=== PATIENT | male | born 1965 | race Caucasian/White ===

== ENCOUNTER 2018-12-12 11:38 | Emergency (ER) | payer OTHER ==
[2018-12-12] MEDS: LIDOCAINE 2%/EPI MPF (SDV) 20 ML VIAL INJ (12:10)
[2018-12-12 12:29] LABS: ADD MAN DIFF? NO
[2018-12-12] MEDS: DIPHTH/TET/ACEL PERTUSS (ADULT) 0.5 ML VIAL IM* (12:32)
[2018-12-12 12:35] LABS: WHITE BLOOD COUNT 6.2 10^3/ul (4.8-10.8)
[2018-12-12 12:35] LABS: BASOPHIL # 0.1 10^3/ul (0.0-0.1); BASOPHILS % 1.8 % (0.0-2.0); EOSINOPHILS # 0.3 10^3/ul (0.0-0.5); HEMATOCRIT 29.4 % (42.0-52.0); HEMOGLOBIN 8.6 g/dl (14.0-18.0); LYMPHOCYTES # 1.6 10^3/ul (0.8-2.9); LYMPHOCYTES % 26.1 % (15.0-51.0); MEAN CORPUSCULAR HGB CONC 29.3 g/dl (32.0-37.0); MEAN CORPUSCULAR VOLUME 78.6 fl (82.0-101.0); MEAN PLATELET VOLUME 9.6 fl (7.4-10.4); MONOCYTE # 0.9 10^3/ul (0.3-0.9); MONOCYTES % 13.9 % (0.0-11.0); NEUTROPHIL # 3.2 10^3/ul (1.6-7.5); NEUTROPHILS % 52.6 % (39.0-77.0); PLATELET COUNT 147 10^3/UL (140-415); RED BLOOD COUNT 3.74 10^6/ul (4.70-6.10); RED CELL DISTRIBUTION WIDTH 18.6 % (11.5-14.5)
[2018-12-12 12:57] LABS: ALANINE AMINOTRANSFERASE 29 IU/L (13-69); ALBUMIN 3.1 g/dl (3.3-4.9); ALBUMIN/GLOBULIN RATIO 0.67; ALKALINE PHOSPHATASE 230 IU/L (42-121); ANION GAP 10 (5-13); ASPARTATE AMINO TRANSFERASE 86 IU/L (15-46); BILIRUBIN,INDIRECT 0.4 mg/dl (0-1.1); BILIRUBIN,TOTAL 0.4 mg/dl (0.2-1.3); BLOOD UREA NITROGEN 8 mg/dl (7-20); CALCIUM 8.2 mg/dl (8.4-10.2); CARBON DIOXIDE 21 mmol/L (21-31); CHLORIDE 114 mmol/L (97-110); CREATININE 0.57 mg/dl (0.61-1.24); Estimated GFR > 60 mL/min (>60); GLUCOSE 129 mg/dl (70-220); POTASSIUM 3.7 mmol/L (3.5-5.1); SODIUM 145 mmol/L (135-144); TOTAL PROTEIN 7.7 g/dl (6.1-8.1)
[2018-12-12 13:11] LABS: ACETAMINOPHEN < 10.0 ug/ml (10.0-30.0); SALICYLATE < 1.0 mg/dl (5.0-30.0)
[2018-12-12 14:13] LABS: ADD UMIC YES; UR ASCORBIC ACID NEGATIVE (NEGATIVE); UR BILIRUBIN (Dip) NEGATIVE (NEGATIVE); UR BLOOD (Dip) 1+ mg/dL (NEGATIVE); UR CLARITY CLEAR (CLEAR); UR COLOR YELLOW (YELLOW); UR GLUCOSE (Dip) NEGATIVE (NEGATIVE); UR KETONES (Dip) NEGATIVE (NEGATIVE); UR LEUKOCYTE ESTERASE (Dip) NEGATIVE Leu/ul (NEGATIVE); UR NITRITE (Dip) NEGATIVE (NEGATIVE); UR RBC 0 /HPF (0-5); UR SPECIFIC GRAVITY (Dip) 1.006 (1.003-1.030); UR TOTAL PROTEIN (Dip) NEGATIVE (NEGATIVE); UR UROBILINOGEN (Dip) NEGATIVE (NEGATIVE); UR WBC 0 /HPF (0-5)
[2018-12-12 15:09] LABS: BARBITURATES Negative (NEGATIVE); BENZODIAZEPINES Negative (NEGATIVE); CANNABINOIDS Negative (NEGATIVE); COCAINE Negative (NEGATIVE); OPIATES Negative (NEGATIVE)
[2018-12-12 15:28] LABS: AMPHETAMINE/METHAMPHETAMINE Positive (NEGATIVE)
== END 2018-12-12 14:21 | disposition home or self-care (01) ==
LOC: E/R 11:38
DX: S01.411A Laceration without foreign body of right cheek and temporomandibular area, initial encounter (principal); F10.920 Alcohol use, unspecified with intoxication, uncomplicated; S02.2XXA Fracture of nasal bones, initial encounter for closed fracture; W01.0XXA Fall on same level from slipping, tripping and stumbling without subsequent striking against object, initial encounter; Y92.9 Unspecified place or not applicable; Z23 Encounter for immunization
CPT/HCPCS: 12011; 70450; 70486; 73562; 80053; 80307; 81001; 85025; 90471; 90715; 99285-25

== ENCOUNTER 2019-03-25 09:48 | Inpatient (IN) | payer OTHER ==
[2019-03-25] MEDS: SODIUM CHLORIDE 0.9% 1L BAG IV* (10:23)
[2019-03-25 10:26] LABS: ABNORMAL IP MESSAGE 1; HEMATOCRIT 24.8 % (42.0-52.0); HEMOGLOBIN 7.1 g/dl (14.0-18.0); MEAN CORPUSCULAR HEMOGLOBIN 22.5 pg (29.0-33.0); MEAN CORPUSCULAR HGB CONC 28.6 g/dl (32.0-37.0); MEAN CORPUSCULAR VOLUME 78.5 fl (82.0-101.0); MEAN PLATELET VOLUME 10.1 fl (7.4-10.4); NUCLEATED RED BLOOD CELLS% 0.2 /100WBC (0.0-0.0); PLATELET COUNT 67 10^3/UL (140-415); POSITIVE DIFF @See below; RED BLOOD COUNT 3.16 10^6/ul (4.70-6.10); RED CELL DISTRIBUTION WIDTH 23.5 % (11.5-14.5)
[2019-03-25 10:26] LABS: WHITE BLOOD COUNT 8.9 10^3/ul (4.8-10.8)
[2019-03-25] MEDS: CEFEPIME 2GM/50 ML (PMX) 50 ML IVPB (10:26)
[2019-03-25 10:28] LABS: ADD MAN DIFF? YES
[2019-03-25] MEDS: ACETAMINOPHEN 325 MG TAB PO (10:28)
[2019-03-25 10:42] LABS: ALANINE AMINOTRANSFERASE 30 IU/L (13-69); ALBUMIN 2.3 g/dl (3.3-4.9); ALBUMIN/GLOBULIN RATIO 0.51; ALKALINE PHOSPHATASE 164 IU/L (42-121); ANION GAP 12 (5-13); ASPARTATE AMINO TRANSFERASE 117 IU/L (15-46); BILIRUBIN,INDIRECT 2.8 mg/dl (0-1.1); BILIRUBIN,TOTAL 6.5 mg/dl (0.2-1.3); BLOOD UREA NITROGEN 11 mg/dl (7-20); CARBON DIOXIDE 21 mmol/L (21-31); CHLORIDE 99 mmol/L (97-110); CREATININE 0.57 mg/dl (0.61-1.24); Estimated GFR > 60 mL/min (>60); GLUCOSE 133 mg/dl (70-220); POTASSIUM 3.3 mmol/L (3.5-5.1); SODIUM 132 mmol/L (135-144); TOTAL PROTEIN 6.8 g/dl (6.1-8.1)
[2019-03-25 10:43] LABS: INR 1.78; PROTIME 20.8 Sec (11.9-14.9); PT RATIO 1.6
[2019-03-25 10:44] LABS: PARTIAL THROMBOPLASTIN TIME 38.9 Sec (23.0-35.0)
[2019-03-25 10:53] LABS: TROPONIN-I < 0.012 ng/ml (0.000-0.120)
[2019-03-25 10:55] LABS: ANISOCYTOSIS 2+ (0-0); ERYTHROBLAST% (NRBC) (M) 3 % (0-0); LYMPHOCYTES #M 0.4 10^3/ul (0.8-2.9); LYMPHOCYTES % (M) 5 % (15-51); MONOCYTE #M 0.8 10^3/ul (0.3-0.9); MONOCYTES % (M) 9 % (0-11); PLATELET ESTIMATE DECREASED; POIKILOCYTOSIS 1+ (0-0); POLYCHROMASIA 3+ (0-0); SEGMENTED NEUTROPHILS (M) % 86 % (39-77); SMUDGE%M 6 % (0-0); TARGET CELLS 1+ (0-0)
[2019-03-25] MEDS ORDERED: ONDANSETRON 4 MG INJ IV ×2 (13:00→16:30)
[2019-03-25] MEDS ORDERED: ACETAMINOPHEN 325 MG TAB PO ×2 (13:00→16:30)
[2019-03-25 14:15] LABS: LACTIC ACID 2.6 mmol/L (0.5-2.0)
[2019-03-25] MEDS ORDERED: NACL 0.9% 3 ML SYG IV (16:30)
[2019-03-25] MEDS ORDERED: morphine 2 MG INJ IV (16:30)
[2019-03-25] MEDS ORDERED: HYDROCODONE/APAP (5/325) TAB PO (16:30)
[2019-03-25] MEDS: POTASSIUM CHLORIDE (SR) 20 MEQ TAB PO (16:47)
[2019-03-25 17:20] LABS: CARCINOEMBRYONIC ANTIGEN 5.6 ng/ml (0.0-5.0)
[2019-03-25 17:24] LABS: CANCER ANTIGEN 19-9 30.5 U/ml (0.0-37.0)
[2019-03-25 17:25] LABS: ALPHA FETOPROTEIN 5.73 IU/L (0.00-7.21)
[2019-03-26 05:30] LABS: ADD MAN DIFF? NO
[2019-03-26 05:39] LABS: WHITE BLOOD COUNT 6.5 10^3/ul (4.8-10.8)
[2019-03-26 05:39] LABS: ABNORMAL IP MESSAGE 1; BASOPHIL # 0.1 10^3/ul (0.0-0.1); BASOPHILS % 0.8 % (0.0-2.0); EOSINOPHILS # 0.1 10^3/ul (0.0-0.5); EOSINOPHILS % 1.2 % (0.0-7.0); HEMATOCRIT 22.6 % (42.0-52.0); LYMPHOCYTES # 0.5 10^3/ul (0.8-2.9); LYMPHOCYTES % 8.4 % (15.0-51.0); MEAN CORPUSCULAR HEMOGLOBIN 23.2 pg (29.0-33.0); MEAN CORPUSCULAR HGB CONC 29.2 g/dl (32.0-37.0); MEAN CORPUSCULAR VOLUME 79.3 fl (82.0-101.0); MEAN PLATELET VOLUME 10.2 fl (7.4-10.4); MONOCYTE # 1.5 10^3/ul (0.3-0.9); MONOCYTES % 23.1 % (0.0-11.0); NEUTROPHIL # 4.2 10^3/ul (1.6-7.5); NEUTROPHILS % 65.1 % (39.0-77.0); PLATELET COUNT 50 10^3/UL (140-415); POSITIVE DIFF @See below; RED BLOOD COUNT 2.85 10^6/ul (4.70-6.10); RED CELL DISTRIBUTION WIDTH 23.5 % (11.5-14.5)
[2019-03-26 05:52] LABS: HEMOGLOBIN 6.6 g/dl (14.0-18.0)
[2019-03-26 06:05] LABS: IRON 13 ug/dl (35-150)
[2019-03-26 06:08] LABS: ALANINE AMINOTRANSFERASE 32 IU/L (13-69); ALBUMIN/GLOBULIN RATIO 0.51; ALKALINE PHOSPHATASE 140 IU/L (42-121); ANION GAP 7 (5-13); ASPARTATE AMINO TRANSFERASE 100 IU/L (15-46); BILIRUBIN,INDIRECT 2.7 mg/dl (0-1.1); BILIRUBIN,TOTAL 5.7 mg/dl (0.2-1.3); BLOOD UREA NITROGEN 8 mg/dl (7-20); CALCIUM 7.1 mg/dl (8.4-10.2); CARBON DIOXIDE 22 mmol/L (21-31); CHLORIDE 107 mmol/L (97-110); CREATININE 0.51 mg/dl (0.61-1.24); Estimated GFR > 60 mL/min (>60); GLUCOSE 85 mg/dl (70-220); MAGNESIUM 1.7 mg/dl (1.7-2.5); PHOSPHORUS 1.6 mg/dl (2.5-4.9); POTASSIUM 3.5 mmol/L (3.5-5.1); SODIUM 136 mmol/L (135-144); TOTAL PROTEIN 5.9 g/dl (6.1-8.1)
[2019-03-26 06:14] LABS: % IRON SATURATION 7 % SAT (22-52); TOTAL IRON BINDING CAPACITY 176 ug/dl (241-421)
[2019-03-26 09:38] LABS: ANISOCYTOSIS 1+ (0-0); BAND NEUTROPHILS #M 0.3 10^3/ul (0.0-0.6); BAND NEUTROPHILS % (M) 5 % (0-4); EOSINOPHILS % (M) 3 % (0-7); GIANT THROMBO% (M) 3 % (0-0); HYPOCHROMASIA 3+ (0-0); LYMPHOCYTES #M 0.1 10^3/ul (0.8-2.9); LYMPHOCYTES % (M) 3 % (15-51); METAMYELOCYTES %M 1 % (0-0); MONOCYTE #M 1.3 10^3/ul (0.3-0.9); MONOCYTES % (M) 20 % (0-11); PLATELET ESTIMATE DECREASED; POLYCHROMASIA 1+ (0-0); RBC MORPHOLOGY COMMENT @See below; SEG NEUT #M 4.4 10^3/ul (1.6-7.5); SEGMENTED NEUTROPHILS (M) % 68 % (39-77); SMUDGE%M 19 % (0-0); TARGET CELLS 1+ (0-0); WBC MORPHOLOGY COMMENT @See below
[2019-03-26 11:52] LABS: IMMEDIATE SPIN CROSSMATCH 1 1
[2019-03-26 15:55] LABS: FLD MN% 52.7 %; FLD PMN% 47.3 %; FLD RBC 0 /uL; FLD WBC 305 /cmm
[2019-03-26] MEDS: POTASSIUM PHOSPHATE 20 MEQ in SOD CHLORIDE 0.9% 250 ML IVPB (16:23)
[2019-03-26 16:31] LABS: FLUID TOTAL PROTEIN < 2.0 g/dl
[2019-03-26 16:48] LABS: FLD TYPE ASCITES
[2019-03-26 16:48] LABS: FLD CLARITY HAZY; FLD COLOR YELLOW
[2019-03-26 18:02] LABS: ADD MAN DIFF? NO
[2019-03-26 18:10] LABS: ABNORMAL IP MESSAGE 1; BASOPHIL # 0.1 10^3/ul (0.0-0.1); BASOPHILS % 0.9 % (0.0-2.0); EOSINOPHILS # 0.1 10^3/ul (0.0-0.5); EOSINOPHILS % 0.9 % (0.0-7.0); HEMOGLOBIN 7.5 g/dl (14.0-18.0); LYMPHOCYTES # 0.6 10^3/ul (0.8-2.9); LYMPHOCYTES % 8.1 % (15.0-51.0); MEAN CORPUSCULAR HEMOGLOBIN 24.2 pg (29.0-33.0); MEAN CORPUSCULAR VOLUME 80.6 fl (82.0-101.0); MEAN PLATELET VOLUME 9.6 fl (7.4-10.4); MONOCYTE # 1.4 10^3/ul (0.3-0.9); MONOCYTES % 20.9 % (0.0-11.0); NEUTROPHIL # 4.6 10^3/ul (1.6-7.5); NEUTROPHILS % 67.6 % (39.0-77.0); NUCLEATED RED BLOOD CELLS% 0.3 /100WBC (0.0-0.0); PLATELET COUNT 53 10^3/UL (140-415); POSITIVE DIFF @See below; RED CELL DISTRIBUTION WIDTH 22.6 % (11.5-14.5)
[2019-03-26 18:10] LABS: WHITE BLOOD COUNT 6.8 10^3/ul (4.8-10.8)
[2019-03-26 18:25] LABS: AMMONIA < 9 umol/l (9-30)
[2019-03-26 18:27] LABS: ANION GAP 6 (5-13); BLOOD UREA NITROGEN 10 mg/dl (7-20); CARBON DIOXIDE 21 mmol/L (21-31); CHLORIDE 106 mmol/L (97-110); CREATININE 0.47 mg/dl (0.61-1.24); Estimated GFR > 60 mL/min (>60); GLUCOSE 80 mg/dl (70-220); POTASSIUM 3.8 mmol/L (3.5-5.1); SODIUM 133 mmol/L (135-144)
[2019-03-26] MEDS: SOD FERRIC GLUC COMPLX 125 MG in SOD CHLORIDE 0.9% 100 ML IVPB (20:30)
== END 2019-03-26 22:27 | disposition home or self-care (01) | DRG 433 ==
LOC: E/R 09:48 → PP2 12:43
PROVIDERS: Internal Medicine
PROC: 0W9G3ZZ Drainage of Peritoneal Cavity, Percutaneous Approach (ICD-10-PCS; principal; 2019-03-26)
PROC: 30253N1 (ICD-10-PCS; 2019-03-26)
DX: K70.31 Alcoholic cirrhosis of liver with ascites (principal); D61.818 Other pancytopenia; E87.1 Hypo-osmolality and hyponatremia; E87.2 Acidosis; F10.188 Alcohol abuse with other alcohol-induced disorder; D50.9 Iron deficiency anemia, unspecified; E87.6 Hypokalemia; D63.8 Anemia in other chronic diseases classified elsewhere
CPT/HCPCS: 36415; 36430; 71045; 74176; 74182; 80048; 80053; 82042; 82105; 82140; 82378; 83036; 83540; 83605; 83735; 84100; 84157; 84484; 85025; 85610; 85730; 86301; 86850; 86900; 86901; 86920; 87040-91; 87070; 87102; 87116; 88104; 88305; 89051; 93005; 96374; 99285-25

== ENCOUNTER 2019-03-27 14:16 | Emergency (ER) | payer OTHER ==
[2019-03-27] MEDS: FUROSEMIDE 20 MG TAB PO (15:18)
== END 2019-03-27 15:33 | disposition home or self-care (01) ==
LOC: E/R 14:16
DX: K70.31 Alcoholic cirrhosis of liver with ascites (principal); F10.10 Alcohol abuse, uncomplicated
CPT/HCPCS: 99283; Z7610

== ENCOUNTER 2019-04-02 17:21 | Emergency (ER) | payer OTHER | END 2019-04-02 19:00 | disposition home or self-care (01) | LOC: E/R 17:21 | DX: R18.8 Other ascites (principal); R10.84 Generalized abdominal pain | CPT/HCPCS: 99283; Z7502 ==

== ENCOUNTER 2019-04-03 08:39 | Emergency (ER) | payer OTHER ==
[2019-04-03] MEDS: LIDOCAINE 1% (MPF) 5 ML VIAL (10:03)
== END 2019-04-03 11:12 | disposition home or self-care (01) ==
LOC: E/R 08:39
DX: K70.31 Alcoholic cirrhosis of liver with ascites (principal)
CPT/HCPCS: 99285-25; Z7502

== ENCOUNTER 2019-04-08 08:44 | Emergency (ER) | payer OTHER ==
[2019-04-08] MEDS: LIDOCAINE 1% (MPF) 5 ML VIAL (10:32)
== END 2019-04-08 11:26 | disposition home or self-care (01) ==
LOC: E/R 08:44
DX: R18.8 Other ascites (principal)
CPT/HCPCS: 99285-25; Z7502

== ENCOUNTER 2019-04-15 08:38 | Emergency (ER) | payer OTHER ==
[2019-04-15] MEDS: LIDOCAINE 1% (MPF) 5 ML VIAL (13:34)
== END 2019-04-15 13:48 | disposition home or self-care (01) ==
LOC: E/R 08:38
DX: K70.31 Alcoholic cirrhosis of liver with ascites (principal)
CPT/HCPCS: 99285-25; Z7502

== ENCOUNTER 2019-04-21 10:37 | Emergency (ER) | payer OTHER ==
[2019-04-21 12:28] LABS: ADD MAN DIFF? NO
[2019-04-21 12:31] LABS: ABNORMAL IP MESSAGE 1; BASOPHIL # 0.1 10^3/ul (0.0-0.1); BASOPHILS % 0.6 % (0.0-2.0); EOSINOPHILS # 0.2 10^3/ul (0.0-0.5); EOSINOPHILS % 1.5 % (0.0-7.0); HEMOGLOBIN 8.3 g/dl (14.0-18.0); LYMPHOCYTES # 1.2 10^3/ul (0.8-2.9); LYMPHOCYTES % 9.7 % (15.0-51.0); MEAN CORPUSCULAR HEMOGLOBIN 27.6 pg (29.0-33.0); MEAN CORPUSCULAR HGB CONC 31.9 g/dl (32.0-37.0); MEAN CORPUSCULAR VOLUME 86.4 fl (82.0-101.0); MEAN PLATELET VOLUME 9.7 fl (7.4-10.4); MONOCYTE # 1.3 10^3/ul (0.3-0.9); MONOCYTES % 10.8 % (0.0-11.0); NEUTROPHIL # 9.5 10^3/ul (1.6-7.5); NEUTROPHILS % 76.9 % (39.0-77.0); PLATELET COUNT 95 10^3/UL (140-415); POSITIVE DIFF @See below; RED BLOOD COUNT 3.01 10^6/ul (4.70-6.10); RED CELL DISTRIBUTION WIDTH 21.7 % (11.5-14.5)
[2019-04-21 12:31] LABS: WHITE BLOOD COUNT 12.3 10^3/ul (4.8-10.8)
[2019-04-21 12:48] LABS: ADD UMIC NO; ALANINE AMINOTRANSFERASE 56 IU/L (13-69); ALBUMIN 2.3 g/dl (3.3-4.9); ALBUMIN/GLOBULIN RATIO 0.45; ALKALINE PHOSPHATASE 275 IU/L (42-121); ANION GAP 8 (5-13); ASPARTATE AMINO TRANSFERASE 112 IU/L (15-46); BILIRUBIN,INDIRECT 1.4 mg/dl (0-1.1); BILIRUBIN,TOTAL 1.4 mg/dl (0.2-1.3); BLOOD UREA NITROGEN 11 mg/dl (7-20); CALCIUM 7.9 mg/dl (8.4-10.2); CARBON DIOXIDE 22 mmol/L (21-31); CHLORIDE 102 mmol/L (97-110); CREATININE 0.71 mg/dl (0.61-1.24); Estimated GFR > 60 mL/min (>60); GLUCOSE 91 mg/dl (70-220); POTASSIUM 3.9 mmol/L (3.5-5.1); SODIUM 132 mmol/L (135-144); TOTAL PROTEIN 7.4 g/dl (6.1-8.1); UR ASCORBIC ACID NEGATIVE (NEGATIVE); UR BILIRUBIN (Dip) NEGATIVE (NEGATIVE); UR BLOOD (Dip) NEGATIVE (NEGATIVE); UR CLARITY CLEAR (CLEAR); UR COLOR YELLOW (YELLOW); UR GLUCOSE (Dip) NEGATIVE (NEGATIVE); UR KETONES (Dip) NEGATIVE (NEGATIVE); UR LEUKOCYTE ESTERASE (Dip) NEGATIVE Leu/ul (NEGATIVE); UR NITRITE (Dip) NEGATIVE (NEGATIVE); UR SPECIFIC GRAVITY (Dip) 1.004 (1.003-1.030); UR TOTAL PROTEIN (Dip) NEGATIVE (NEGATIVE); UR UROBILINOGEN (Dip) NEGATIVE (NEGATIVE)
== END 2019-04-21 17:28 | disposition home or self-care (01) ==
LOC: E/R 10:37
DX: R25.2 Cramp and spasm (principal); R18.8 Other ascites
CPT/HCPCS: 80053; 81003; 85025; 99283

== ENCOUNTER 2019-04-27 08:46 | Emergency (ER) | payer OTHER | END 2019-04-27 09:54 | disposition home or self-care (01) | LOC: E/R 08:46 | DX: K70.31 Alcoholic cirrhosis of liver with ascites (principal) | CPT/HCPCS: 76705; 99284-25 ==

== ENCOUNTER 2019-05-04 08:51 | Emergency (ER) | payer OTHER ==
[2019-05-04] MEDS: LIDOCAINE 1% (MPF) 5 ML VIAL (10:57)
== END 2019-05-04 11:20 | disposition home or self-care (01) ==
LOC: E/R 08:51
DX: R18.8 Other ascites (principal)
CPT/HCPCS: 99285-25; Z7610

== ENCOUNTER 2019-05-11 08:52 | Emergency (ER) | payer OTHER | END 2019-05-11 10:52 | disposition home or self-care (01) | LOC: E/R 08:52 | DX: K74.60 Unspecified cirrhosis of liver (principal); R18.8 Other ascites | CPT/HCPCS: 76705; 99284-25 ==

== ENCOUNTER 2019-05-18 09:21 | Inpatient (IN) | payer OTHER ==
[2019-05-18 10:12] LABS: ABNORMAL IP MESSAGE 1; HEMATOCRIT 22.4 % (42.0-52.0); MEAN CORPUSCULAR HGB CONC 30.4 g/dl (32.0-37.0); MEAN CORPUSCULAR VOLUME 88.9 fl (82.0-101.0); MEAN PLATELET VOLUME 10.4 fl (7.4-10.4); POSITIVE DIFF @See below; RED BLOOD COUNT 2.52 10^6/ul (4.70-6.10); RED CELL DISTRIBUTION WIDTH 18.8 % (11.5-14.5)
[2019-05-18 10:12] LABS: WHITE BLOOD COUNT 5.2 10^3/ul (4.8-10.8)
[2019-05-18 10:14] LABS: ADD MAN DIFF? YES; HEMOGLOBIN 6.8 g/dl (14.0-18.0); PLATELET COUNT 69 10^3/UL (140-415)
[2019-05-18] MEDS: SOD CHLORIDE 0.9% 0 ML IV (10:14)
[2019-05-18 10:25] LABS: ALANINE AMINOTRANSFERASE 41 IU/L (13-69); ALBUMIN 2.1 g/dl (3.3-4.9); ALBUMIN/GLOBULIN RATIO 0.42; ALKALINE PHOSPHATASE 224 IU/L (42-121); ANION GAP 5 (5-13); ASPARTATE AMINO TRANSFERASE 70 IU/L (15-46); BLOOD UREA NITROGEN 13 mg/dl (7-20); CALCIUM 7.9 mg/dl (8.4-10.2); CARBON DIOXIDE 19 mmol/L (21-31); CHLORIDE 107 mmol/L (97-110); CREATININE 0.69 mg/dl (0.61-1.24); Estimated GFR > 60 mL/min (>60); GLUCOSE 142 mg/dl (70-220); POTASSIUM 3.5 mmol/L (3.5-5.1); SODIUM 131 mmol/L (135-144); TOTAL PROTEIN 7.1 g/dl (6.1-8.1)
[2019-05-18 10:26] LABS: INR 1.77; PROTIME 20.7 Sec (11.9-14.9); PT RATIO 1.6
[2019-05-18 11:01] LABS: ANISOCYTOSIS 1+ (0-0); BAND NEUTROPHILS #M 0.1 10^3/ul (0.0-0.6); BAND NEUTROPHILS % (M) 2 % (0-4); BASOPHILS % (M) 1 % (0-2); ECHINOCYTOSIS 1+ (0-0); GIANT THROMBO% (M) 4 % (0-0); LYMPHOCYTES #M 0.5 10^3/ul (0.8-2.9); LYMPHOCYTES % (M) 10 % (15-51); MONOCYTE #M 0.2 10^3/ul (0.3-0.9); MONOCYTES % (M) 4 % (0-11); PLATELET ESTIMATE DECREASED; POIKILOCYTOSIS 1+ (0-0); POLYCHROMASIA 1+ (0-0); SEG NEUT #M 4.3 10^3/ul (1.6-7.5); SEGMENTED NEUTROPHILS (M) % 83 % (39-77); SMUDGE%M 2 % (0-0)
[2019-05-18] MEDS ORDERED: ACETAMINOPHEN 325 MG TAB PO (12:30)
[2019-05-18] MEDS ORDERED: ONDANSETRON 4 MG INJ IV ×2 (12:30→13:00)
[2019-05-18] MEDS ORDERED: NACL 0.9% 3 ML SYG IV (13:00)
[2019-05-18] MEDS ORDERED: morphine 2 MG INJ IV (13:00)
[2019-05-18] MEDS ORDERED: MAGNESIUM HYDROXIDE 30ML CUP PO (13:00)
[2019-05-18 14:59] LABS: IMMEDIATE SPIN CROSSMATCH 1 2
[2019-05-18] MEDS: BISACODYL (EC) 5 MG TAB PO (18:35)
[2019-05-18] MEDS: FUROSEMIDE 20 MG TAB PO (18:36)
[2019-05-18] MEDS: MAGNESIUM CITRATE 300 ML BTL PO (18:55)
[2019-05-18] MEDS: POLYETHYLENE GLYCOL 3350 119 GM POWDER PO (18:56)
[2019-05-18] MEDS: SPIRONOLACTONE 50 MG TAB PO (20:25)
[2019-05-19] MEDS: POLYETHYLENE GLYCOL 3350 119 GM POWDER PO (05:57)
[2019-05-19] MEDS: PANTOPRAZOLE 40 MG INJ IV (05:58)
[2019-05-19] MEDS: FUROSEMIDE 20 MG TAB PO ×2 (06:25→18:47)
[2019-05-19] MEDS: BISACODYL (EC) 5 MG TAB PO (07:00)
[2019-05-19 07:10] LABS: ADD MAN DIFF? NO
[2019-05-19 07:15] LABS: WHITE BLOOD COUNT 10.7 10^3/ul (4.8-10.8)
[2019-05-19 07:15] LABS: ABNORMAL IP MESSAGE 1; BASOPHIL # 0.1 10^3/ul (0.0-0.1); BASOPHILS % 0.5 % (0.0-2.0); EOSINOPHILS % 0.2 % (0.0-7.0); HEMOGLOBIN 10.1 g/dl (14.0-18.0); LYMPHOCYTES # 0.4 10^3/ul (0.8-2.9); LYMPHOCYTES % 3.9 % (15.0-51.0); MEAN CORPUSCULAR HEMOGLOBIN 27.4 pg (29.0-33.0); MEAN CORPUSCULAR HGB CONC 31.6 g/dl (32.0-37.0); MEAN PLATELET VOLUME 11.2 fl (7.4-10.4); MONOCYTE # 0.7 10^3/ul (0.3-0.9); MONOCYTES % 6.9 % (0.0-11.0); NEUTROPHIL # 9.4 10^3/ul (1.6-7.5); NEUTROPHILS % 87.8 % (39.0-77.0); PLATELET COUNT 68 10^3/UL (140-415); POSITIVE DIFF @See below; RED BLOOD COUNT 3.68 10^6/ul (4.70-6.10); RED CELL DISTRIBUTION WIDTH 18.3 % (11.5-14.5)
[2019-05-19 07:27] LABS: HEMOGLOBIN A1C 4.6 % (0-5.9)
[2019-05-19 07:36] LABS: AMMONIA 43 umol/l (9-30)
[2019-05-19 07:37] LABS: ALANINE AMINOTRANSFERASE 48 IU/L (13-69); ALBUMIN 2.2 g/dl (3.3-4.9); ALBUMIN/GLOBULIN RATIO 0.41; ALKALINE PHOSPHATASE 238 IU/L (42-121); ANION GAP 4 (5-13); ASPARTATE AMINO TRANSFERASE 79 IU/L (15-46); BILIRUBIN,INDIRECT 2.9 mg/dl (0-1.1); BLOOD UREA NITROGEN 10 mg/dl (7-20); CALCIUM 8.2 mg/dl (8.4-10.2); CARBON DIOXIDE 20 mmol/L (21-31); CHLORIDE 108 mmol/L (97-110); CHOL/HDL RATIO 7.6 RATIO; CHOLESTEROL 122 mg/dl (100-200); CREATININE 0.61 mg/dl (0.61-1.24); Estimated GFR > 60 mL/min (>60); GLUCOSE 87 mg/dl (70-220); HDL CHOLESTEROL 16 mg/dl (28-71); LDL CHOLESTEROL,CALCULATED 90 mg/dl; MAGNESIUM 1.8 mg/dl (1.7-2.5); PHOSPHORUS 3.8 mg/dl (2.5-4.9); POTASSIUM 4.2 mmol/L (3.5-5.1); SODIUM 132 mmol/L (135-144); TOTAL PROTEIN 7.5 g/dl (6.1-8.1); TRIGLYCERIDES 79 mg/dl (0-149)
[2019-05-19 07:54] LABS: FREE THYROXINE INDEX (Calc) 3.63 ug/ml (0.65-3.89); T3 UPTAKE 51.8 % (23.5-40.5)
[2019-05-19] MEDS: SPIRONOLACTONE 50 MG TAB PO ×2 (08:06→20:19)
[2019-05-19] MEDS ORDERED: LIDOCAINE 2% (SDV) 5 ML INJ (17:26)
[2019-05-19] MEDS ORDERED: PROPOFOL 60 ML (17:26)
[2019-05-19] MEDS ORDERED: ONDANSETRON 4 MG INJ IV (18:00)
[2019-05-19] MEDS ORDERED: hydrALAzine 20 MG INJ IV (18:00)
[2019-05-19] MEDS ORDERED: LABETALOL HCL 20MG INJ IV (18:00)
[2019-05-19] MEDS ORDERED: FENTAnyl 50 MCG/ML VIAL IV (18:00)
[2019-05-19] MEDS ORDERED: EPHEDrine 25 MG/5 ML SYG IV (18:00)
[2019-05-20] MEDS: PANTOPRAZOLE 40 MG INJ IV (05:47)
[2019-05-20] MEDS: FUROSEMIDE 20 MG TAB PO ×2 (05:47→17:24)
[2019-05-20] MEDS: SPIRONOLACTONE 50 MG TAB PO (09:02)
[2019-05-20 11:33] LABS: ADD MAN DIFF? NO
[2019-05-20 11:37] LABS: ABNORMAL IP MESSAGE 1; BASOPHILS % 0.4 % (0.0-2.0); EOSINOPHILS # 0.1 10^3/ul (0.0-0.5); EOSINOPHILS % 0.9 % (0.0-7.0); HEMATOCRIT 28.5 % (42.0-52.0); HEMOGLOBIN 8.9 g/dl (14.0-18.0); LYMPHOCYTES # 0.9 10^3/ul (0.8-2.9); LYMPHOCYTES % 10.1 % (15.0-51.0); MEAN CORPUSCULAR HEMOGLOBIN 27.3 pg (29.0-33.0); MEAN CORPUSCULAR HGB CONC 31.2 g/dl (32.0-37.0); MEAN CORPUSCULAR VOLUME 87.4 fl (82.0-101.0); MONOCYTE # 1.3 10^3/ul (0.3-0.9); MONOCYTES % 14.7 % (0.0-11.0); NEUTROPHIL # 6.5 10^3/ul (1.6-7.5); NEUTROPHILS % 73.3 % (39.0-77.0); PLATELET COUNT 51 10^3/UL (140-415); POSITIVE DIFF @See below; RED BLOOD COUNT 3.26 10^6/ul (4.70-6.10); RED CELL DISTRIBUTION WIDTH 17.8 % (11.5-14.5)
[2019-05-20 11:37] LABS: WHITE BLOOD COUNT 8.9 10^3/ul (4.8-10.8)
[2019-05-20 12:01] LABS: ALANINE AMINOTRANSFERASE 37 IU/L (13-69); ALBUMIN/GLOBULIN RATIO 0.42; ALKALINE PHOSPHATASE 131 IU/L (42-121); ANION GAP 6 (5-13); ASPARTATE AMINO TRANSFERASE 55 IU/L (15-46); BILIRUBIN,INDIRECT 2.5 mg/dl (0-1.1); BILIRUBIN,TOTAL 2.7 mg/dl (0.2-1.3); BLOOD UREA NITROGEN 12 mg/dl (7-20); CALCIUM 7.6 mg/dl (8.4-10.2); CARBON DIOXIDE 20 mmol/L (21-31); CHLORIDE 102 mmol/L (97-110); CREATININE 0.65 mg/dl (0.61-1.24); Estimated GFR > 60 mL/min (>60); GLUCOSE 127 mg/dl (70-220); POTASSIUM 3.3 mmol/L (3.5-5.1); SODIUM 128 mmol/L (135-144); TOTAL PROTEIN 6.7 g/dl (6.1-8.1)
[2019-05-20] MEDS: POTASSIUM CHLORIDE (SR) 20 MEQ TAB PO (13:22)
[2019-05-20] MEDS: SOD CHLORIDE 0.9% 1,000 ML IV (13:23)
[2019-05-20] MEDS: SOD FERRIC GLUC COMPLX 125 MG in SOD CHLORIDE 0.9% 100 ML IVPB (15:00)
[2019-05-20] MEDS: PROPRANOLOL 10 MG TAB PO (15:01)
[2019-05-20 15:08] LABS: HEMATOCRIT 26.9 % (42.0-52.0); HEMOGLOBIN 8.6 g/dl (14.0-18.0)
[2019-05-20] MEDS ORDERED: FERROUS SULFATE (EC) 325 MG TAB PO (21:00)
== END 2019-05-20 19:29 | disposition home or self-care (01) | DRG 433 ==
LOC: E/R 09:21 → PP2 12:08
PROC: 06L38CZ Occlusion of Esophageal Vein with Extraluminal Device, Via Natural or Artificial Opening Endoscopic (ICD-10-PCS; principal; 2019-05-19 16:49)
PROC: 0DJD8ZZ Inspection of Lower Intestinal Tract, Via Natural or Artificial Opening Endoscopic (ICD-10-PCS; 2019-05-19 16:49)
PROC: 30233N1 Transfusion of Nonautologous Red Blood Cells into Peripheral Vein, Percutaneous Approach (ICD-10-PCS; 2019-05-19 16:49)
DX: K74.60 Unspecified cirrhosis of liver (principal); E87.1 Hypo-osmolality and hyponatremia; R18.8 Other ascites; I85.10 Secondary esophageal varices without bleeding; D69.59 Other secondary thrombocytopenia; R74.0 Nonspecific elevation of levels of transaminase and lactic acid dehydrogenase [LDH]; E80.6 Other disorders of bilirubin metabolism; D50.9 Iron deficiency anemia, unspecified; K64.8 Other hemorrhoids
CPT/HCPCS: 36430; 76705; 80053; 80061; 82140; 83036; 83735; 84100; 84436; 84443; 84479; 85014; 85018; 85025; 85610; 85730; 86850; 86900; 86901; 86920; 99285-25

== ENCOUNTER 2019-06-01 07:28 | Day surgery (SDC) | payer OTHER | END 2019-06-01 10:15 | disposition home or self-care (01) | LOC: SDS 07:28 | DX: K74.60 Unspecified cirrhosis of liver (principal); Z53.8 Procedure and treatment not carried out for other reasons | CPT/HCPCS: 76705 ==

== ENCOUNTER 2019-06-10 08:57 | Emergency (ER) | payer OTHER ==
[2019-06-10 12:03] LABS: ADD MAN DIFF? NO
[2019-06-10 12:19] LABS: WHITE BLOOD COUNT 8.2 10^3/ul (4.8-10.8)
[2019-06-10 12:19] LABS: ABNORMAL IP MESSAGE 1; BASOPHIL # 0.1 10^3/ul (0.0-0.1); BASOPHILS % 0.7 % (0.0-2.0); EOSINOPHILS # 0.3 10^3/ul (0.0-0.5); EOSINOPHILS % 3.5 % (0.0-7.0); HEMATOCRIT 29.3 % (42.0-52.0); HEMOGLOBIN 9.2 g/dl (14.0-18.0); LYMPHOCYTES # 0.9 10^3/ul (0.8-2.9); LYMPHOCYTES % 10.9 % (15.0-51.0); MEAN CORPUSCULAR HEMOGLOBIN 30.2 pg (29.0-33.0); MEAN CORPUSCULAR HGB CONC 31.4 g/dl (32.0-37.0); MEAN CORPUSCULAR VOLUME 96.1 fl (82.0-101.0); MEAN PLATELET VOLUME 9.6 fl (7.4-10.4); MONOCYTE # 0.8 10^3/ul (0.3-0.9); MONOCYTES % 9.6 % (0.0-11.0); NEUTROPHIL # 6.1 10^3/ul (1.6-7.5); PLATELET COUNT 88 10^3/UL (140-415); POSITIVE DIFF @See below; RED BLOOD COUNT 3.05 10^6/ul (4.70-6.10); RED CELL DISTRIBUTION WIDTH 23.4 % (11.5-14.5)
[2019-06-10 13:01] LABS: INR 1.98; PROTIME 22.6 Sec (11.9-14.9); PT RATIO 1.8
[2019-06-10] MEDS: LIDOCAINE 1% (MPF) 5 ML VIAL (14:05)
== END 2019-06-10 14:14 | disposition home or self-care (01) ==
LOC: E/R 08:57
DX: R18.8 Other ascites (principal); I50.9 Heart failure, unspecified
CPT/HCPCS: 49083; 85025; 85610; 99285-25

== ENCOUNTER 2019-06-24 08:48 | Emergency (ER) | payer OTHER ==
[2019-06-24] MEDS: LIDOCAINE 1% (MPF) 5 ML VIAL (11:12)
== END 2019-06-24 11:55 | disposition home or self-care (01) ==
LOC: E/R 08:48
DX: K74.60 Unspecified cirrhosis of liver (principal); R18.8 Other ascites; I50.9 Heart failure, unspecified
CPT/HCPCS: 99285-25; Z7502

== ENCOUNTER 2019-07-04 06:43 | Emergency (ER) | payer OTHER | END 2019-07-04 12:00 | disposition left against medical advice (07) | LOC: E/R 06:43 | DX: K70.31 Alcoholic cirrhosis of liver with ascites (principal); R40.2142 Coma scale, eyes open, spontaneous, at arrival to emergency department; R40.2252 Coma scale, best verbal response, oriented, at arrival to emergency department; R40.2362 Coma scale, best motor response, obeys commands, at arrival to emergency department | CPT/HCPCS: 99282; Z7502 ==